=== PATIENT | female | born 1955 | race Caucasian/White ===

== ENCOUNTER 2017-05-02 01:01 | Emergency (ER) | payer OTHER, SELFPAY ==
[2017-05-02 01:03] VITALS: BP 147/80; PULSE 79; RESP 14; TEMP 36.4; O2SAT 96; BMI 29.9
--- NOTE | 2017-05-02 02:15 | RAD_ITS ---
STUDY: X-RAY - LEFT HAND REASON FOR EXAM: Female, 61 years old. left hand pain after smashing 4th digit TECHNIQUE: 3 view(s) of the hand. COMPARISON: None. FINDINGS: Normal radiocarpal articulation. Normal distal radioulnar joint. Normal visualized carpal bones. There is degenerative joint disease of the scaphotrapezium / trapezoid articulation. The remainder of the carpal articulations are normal. There is degenerative arthrosis of the carpometacarpal (CMC) articulation of the thumb. Normal second through fifth carpometacarpal joints. There is deformity of the second metacarpal consistent with old fracture. Normal metacarpophalangeal joint of the thumb. Normal interphalangeal joint of the thumb. Normal proximal and distal phalanges of the thumb. Normal metacarpophalangeal joints of the second through fifth fingers. Normal proximal and distal interphalangeal joints of the second through fifth fingers. Normal phalanges of the second through fifth fingers. There is soft tissue swelling in the proximal part of the fourth finger suggesting edema. RAD/Hand Min 3 Views IMPRESSION: Degenerative joint disease of the hand and wrist, as described above. Electronically Signed: Betsey Ruiz MD at 2:40 EST Tel , Service support ,
--- NOTE | 2017-05-02 02:55 | ED.VISSUMM ---
- ER Visit Summary Date of Service: 05/02/17 Chief Complaint: [] Finger crush injury History of Present Illness: The patient is a 61 F [] complaining of a finger crush injury at work where she was struck by a piece of metal while performing a task. She reports the pain is localized to her distal interphalangeal joint of the left ring finger. She reports she is right-hand dominant. No other complaints at this time. Physical Examination: [] Left ring finger shows contusion at the DIP joint with mild swelling and tenderness palpation. Neurovascularly intact distally. Patient is able to move the finger through the full range of motion. Remainder of the finger and hand exam is unremarkable. Test Results: [] X-rays of the hand are unremarkable. Emergency Department Course and Treatment: [] Patient was offered analgesic pain medication and she declined. X-rays were negative. She was provided an AlumaFoam splint and encouraged to follow-up with the [facility]. Treatment Plan: [] Follow-up with [facility]. Disposition: [] Discharge, stable Impression: [] Left ring finger contusion This note was generated with [employer] dictation software. It may contain incorrect words, spelling, and punctuation that were not noted in review of the chart prior to signing ED Disposition - Plan for ED Patient: Chief Complaint: Upper Extremity Injury Referrals: Dorota Soriano [Primary Care Provider] -
--- NOTE | 2017-05-02 02:58 | ED.DCSUM_ITS ---
- ER Visit Summary Date of Service: 05/02/17 Chief Complaint: [] Finger crush injury History of Present Illness: The patient is a 61 F [] complaining of a finger crush injury at work where she was struck by a piece of metal while performing a task. She reports the pain is localized to her distal interphalangeal joint of the left ring finger. She reports she is right-hand dominant. No other complaints at this time. Physical Examination: [] Left ring finger shows contusion at the DIP joint with mild swelling and tenderness palpation. Neurovascularly intact distally. Patient is able to move the finger through the full range of motion. Remainder of the finger and hand exam is unremarkable. Test Results: [] X-rays of the hand are unremarkable. Emergency Department Course and Treatment: [] Patient was offered analgesic pain medication and she declined. X-rays were negative. She was provided an AlumaFoam splint and encouraged to follow-up with the [facility] [place]. Treatment Plan: [] Follow-up with [facility]. Disposition: [] Discharge, stable Impression: [] Left ring finger contusion This note was generated with [employer] dictation software. It may contain incorrect words, spelling, and punctuation that were not noted in review of the chart prior to signing ED Disposition - Plan for ED Patient: Chief Complaint: Upper Extremity Injury Referrals: Dorota Soriano [Primary Care Provider] -
--- NOTE | 2017-05-02 02:59 | DCINST.ED_ITS ---
ED Disposition - Plan for ED Patient: Disposition: Home or Assisted Living Chief Complaint: Upper Extremity Injury Instructions: ED Crush Injury Finger No Fx Referrals: Dorota Soriano [Primary Care Provider] - [facility] [place], [place] [GROUP OF PHYSICIANS] -
[2017-05-02 03:05] VITALS: RESP 16
== END 2017-05-02 03:06 | disposition home or self-care (01) ==
PROVIDERS: Emergency Provider Emergency Medicine
DX: S60.042A Contusion of left ring finger without damage to nail, initial encounter (principal); I10 Essential (primary) hypertension; M19.90 Unspecified osteoarthritis, unspecified site; Z79.899 Other long term (current) drug therapy; W22.8XXA Striking against or struck by other objects, initial encounter; Y93.89 Activity, other specified; Y92.89 Other specified places as the place of occurrence of the external cause; Y99.0 Civilian activity done for income or pay
CPT/HCPCS: 73130; 99282

== ENCOUNTER 2018-08-08 23:03 | Emergency (ER) | payer OTHER, SELFPAY ==
[2018-08-08 23:04] VITALS: BP 140/87; PULSE 80; RESP 18; TEMP 36.9; O2SAT 96; BMI 30.7
--- NOTE | 2018-08-08 23:28 | RAD_ITS ---
STUDY: X-RAY - LEFT HAND, ATTENTION THIRD FINGER REASON FOR EXAM: Female, 62 years old. Trauma TECHNIQUE: . 3 view(s) of the finger were obtained. COMPARISON: None. FINDINGS: Degenerative changes are present. There is mild soft tissue swelling. No radiopaque foreign body. No acute fracture or dislocation. RAD/Finger(s) Min 2 Views IMPRESSION: No acute fracture. Mild soft tissue swelling. Electronically Signed: Juan José Vu, at 23:41 EDT Tel , Service support ,
--- NOTE | 2018-08-09 00:31 | ED.VISSUMM ---
- ER Visit Summary Date of Service: 08/09/18 Chief Complaint: Left long finger injury History of Present Illness: The patient is a 62 F with a crush injury to the left long finger at work tonight. Patient believes the role weight approximate 50 pounds related on her finger. She is right-hand dominant. Physical Examination: Vital signs unremarkable. Patient sitting upright in bed no acute distress. Left upper extremity examination was mild edema and ecchymosis to the left third finger the DIP joint. She has slight decreased range of motion. Good cap refill and sensation noted. Test Results: Left third finger x-rays reveal no fracture. Emergency Department Course and Treatment: Patient is placed in AlumaFoam splint to help provide some protection. She is to come out of this 3 times a day to work on range of motion. She will be written for work restrictions to protect her hand. Treatment Plan: [] Disposition: Discharge Impression: Crush injury left third finger This note was generated with [employer] dictation software. It may contain incorrect words, spelling, and punctuation that were not noted in review of the chart prior to signing ED Disposition - Plan for ED Patient: Disposition: Home or Assisted Living Instructions: ED Crush Injury Finger No Fx Referrals: [facility] [GROUP OF PHYSICIANS] - 3-5 Days
[2018-08-09 00:42] VITALS: BP 148/96; PULSE 70; RESP 18; O2SAT 98
== END 2018-08-09 00:43 | disposition home or self-care (01) ==
PROVIDERS: Emergency Provider Emergency Medicine
DX: S67.193A Crushing injury of left middle finger, initial encounter (principal); W22.8XXA Striking against or struck by other objects, initial encounter; Y93.89 Activity, other specified; Y92.89 Other specified places as the place of occurrence of the external cause; Y99.0 Civilian activity done for income or pay
CPT/HCPCS: 73140; 99282

== ENCOUNTER 2018-09-20 08:00 | Outpatient (RCR) | payer OTHER, SELFPAY ==
[2018-08-22 07:19] VITALS: BMI 29.0
--- NOTE | 2018-08-26 09:24 | HP.OTEVAL_ITS ---
Patient's Visit Information QUIN BIRCH is a 63 year old F, referred to Occupational Therapy by DOE Bustos, with a diagnosis of left MF crush injury. Date of Evaluation: 08/26/18 Occupational Therapist: MARY ALICE Peguero/Shun, CHT - Subjective Subjective: This 63 year old female was seen for OT eval with dx of left IF. PT states August 08 she got her finger caught in a machine. pt states finger began to swelling and turning black and blue, pt then went to the hospital, she thought she broke her finger at the time, pt states ER took xray and did splint her finger. pt is concerned pain and ROM, numbness of her finger. pt would like to get back to using her hand. - Pain left MF 4 Pain Intensity Range: 1, 4, 6 - ROM MP: right MF 0/85 left 0/80 PIP: right MF 0/100 left 0/90 DIP: right MF 0/47 left 0/25 - Strength Interactive Media Specialist: right 47# left 25# Lateral Pinch: right 12# left 10# Tripod Pinch: right 12# left 6# - Edema PIP: right 5.3 left 5.4 - Sensation Thumb: right 3.22 left 3.22 Index: right 3.22 left 3.22 Middle: right 3.22 left 3.61 Ring: right 3.22 left 3.22 Little: right 3.22 left 3.22 - Goals Goal:: PT will demo an increase in char filter tank tender head strength by 20# to increase independent with basic occupations of daily living to return pt to [facility] by D/C. Pt will demo an increase in lateral and tripod pinch by 2# to increase pts independent with opening baggies, containers at [facility] by D/C. Goal:: Pt will demo the ability to form a composite fist to return to performing BADLs and IADLS at [facility] by d/c. Goal:: Pt will report pain no greater than 1/10 with use of affected hand with BADLs and IADLs by d/c. Goal:: Pt will demo a increase in sensation demo by testing a decrease with semi-Karen monofilaments equal to unaffected sensory nerve by d/c Goal:: Pt will demo lit of placing left MF on different textures to increase use of left hand for ADLs and IADLS by d/c - Rehabilitation General Assessment: PT demo with limited left MF ROM, a decrease in left char filter tank tender head and pinch strength, as well as a decline in sensation. pts scar is hypersensitive at this time limiting pt with ADLs and IADLs. Pt would benefit from skilled OT services 2-3x week for 4 weeks. Today pt was ed. in tendon gluide, desensitization, scar mtg and edema control. pt was given handouts and demo understanding of ex and agree to POC. Rehabilitation Potential: Good - Anticipated Interventions Anticipated Interventions: A/AAROM/PROM, Strengthening, Edema Control, Tri ggerpoint Release, Desensitization, Sensory Retraining, Modalities, Orthoses, Joint Protection/Energy Conservation, Ergonomic Education, Fine Motor Coord/Andrade - Visit Plan Frequency: 2-3x /Week Duration: 4 Weeks TEXT: Thank you for the opportunity to evaluate your patient. For Medicare and Medicare HMO plans, please review the plan of care and approve it. It will need to be FAXED BACK to us at [phone] for Medicare purposes. Please let me know if there are questions or concerns regarding this plan of care. Physician Signature: Date:
--- NOTE | 2018-09-20 08:17 | HP.OTDCSUM ---
HP - OT D/C Summary It has been my pleasure to treat QUIN BIRCH under orders from DOE Bustos, for the diagnosis of left MF crush injury for a total of 8 visit(s). Please see the following information for a summary of their discharge status. 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 A left lateral pinch at 12# a increase from 10#. and a Left tripod pinch at 13# a increase from 6#. pt reports she is lifting parts with her hand and does not need scar covered at this time. Pt sensation improved to 2.83 of all left hand digits demo sensation WNL. - Goals Patient Goals: Regain Mobility, Regain Strength, Decrease Pain, Decrease Swelling/Stiffness, Improve Fine Motor Skills, Use Hand/Wrist/Arm Normally Again, Decrease Tingling/Numbness Goal:: PT will demo an increase in foundry laborer coreroom strength by 20# to increase independent with basic occupations of daily living to return pt to [facility] by D/C. Pt will demo an increase in lateral and tripod pinch by 2# to increase pts independent with opening baggies, containers at [facility] by D/C. Goal:: Pt will demo the ability to form a composite fist to return to performing BADLs and IADLS at [facility] by d/c. Goal:: Pt will report pain no greater than 1/10 with use of affected hand with BADLs and IADLs by d/c. Goal:: Pt will demo a increase in sensation demo by testing a decrease with semi-Karen monofilaments equal to unaffected sensory nerve by d/c Goal:: Pt will demo lit of placing left MF on different textures to increase use of left hand for ADLs and IADLS by d/c - Plan Plan: D/C - D/C Information Discharge Comments: Pt has attended 8/12 therapy sessions- Pt has done well and returned to using her hand ind. pt has met goals in OT and is D/C at this time. If there are questions or concerns regarding this patient's occupational therapy, please fell free to call me at [phone]. Thank you for the referral of this patient. Sincerely, Della Spencer, OTR/L, CHT
== END 2018-09-20 19:00 | disposition home or self-care (01) ==
LOC: OT 08:00
PROVIDERS: Family Provider Family Medicine; PCP Family Medicine; Referring Provider Physician Assistant; Visit Provider Physician Assistant
DX: S67.193D Crushing injury of left middle finger, subsequent encounter (principal)
CPT/HCPCS: 97110; 97140; 97166; 97530

== ENCOUNTER 2019-04-20 10:58 | Emergency (ER) | payer BC, SELFPAY ==
[2018-09-14 08:42] VITALS: BMI 29.0
[2019-04-20 11:01] VITALS: BP 159/107; PULSE 85; RESP 16; TEMP 36.6; O2SAT 99; BMI 30.8
--- NOTE | 2019-04-20 11:21 | ED.DCSUM_ITS ---
- ER Visit Summary Date of Service: 04/20/19 Chief Complaint: Epigastric abdominal discomfort and nausea and vomiting History of Present Illness: The patient is a 63 F past medical history of hypertension. Prior hysterectomy. Patient works third shift. This morning started having nausea and vomiting x3. No hematemesis. No melena. No fever. Positive chills. She has had mild epigastric tommy discomfort. Recently she has not had any abdominal pain. No weight loss. No dysuria. No one else wallace pugh in her home has GI symptoms. Physical Examination: Elderly female no acute distress. Vital signs are stable and afebrile. She does not look septic or toxic. H EENT exam unremarkable. Mildly dry movements. Neck nontender lungs clear to auscultation bilaterally. Heart regular rate and rhythm no murmur. Abdomen soft. Minimal epigastric tenderness to palpation. Nondistended. Normal bowel sounds. No signs of obstruction. No hernia or masses. None of the right upper and right lower quadrants are unremarkable. Extremities moves all 4. No edema. Neurologically she is awake and alert with no focal motor deficits. Test Results: White count 11.7. Normal hemoglobin 14 no bands. Electrolytes unremarkable BUN of 25 creatinine 1.26 consistent with a mild dehydration. Liver enzymes normal. Lipase normal at 63. Emergency Department Course and Treatment: Patient treated with IV fluids and IV Zofran. Likely this appears to be a viral syndrome. Labs to be obtained due to the epigastric abdominal pain. I think it is very unlikely for this to be cardiac but I am checking an EKG. Repeat exam patient is doing well at 12:39 PM. Abdomen is completely benign. Both the right upper and right lower quadrants are unremarkable. There is no distention. The abdomen is soft. She is feeling improved after a liter of fluid and IV Zofran. And they are comfortable being discharged home. We did discuss all test results and follow-up as needed. Treatment Plan: Zofran as needed for nausea. Plenty of fluids and rest. Increase diet as tolerated. Off work the next 2 days. Disposition: Discharge Impression: Acute nausea and vomiting epigastric abdominal pain secondary to viral syndrome This note was generated with [employer] software. It may contain incorrect words, spelling, and punctuation that were not noted in review of the chart prior to signing ED Disposition - Plan for ED Patient: Referrals: Care Physician,No Primary [NON-STAFF] -
[2019-04-20 11:40] LABS: Absolute Lymphocyte Count 1.12 X10^3/uL (0.83-4.51); Absolute Neutrophil Count 10.2 X10^3/uL (2.0-7.7); Basophil# 0.03 X10^3/uL; Basophil% 0.3 % (0-1); Eosinophil# 0.01 X10^3/uL; Eosinophils% 0.1 % (0-5); Hematocrit 42.6 % (37-47); Hemoglobin 14.4 g/dL (12.0-15.0); Lymphocyte # 1.12 X10^3/ul (4.0); Lymphocyte % 9.6 % (19-41); Mean Corp Hgb Conc 33.8 g/dL (32-36); Mean Corpuscular Hgb 31.8 pg (27.0-32.0); Monocyte# 0.25 X10^3/uL; Monocyte% 2.1 % (0-10); NRBC Flagged by Analyzer 0 % (0-5); Neutrophil # 10.19 X10^3/uL (2.7-7.7); Neutrophil % 87.5 % (47-70); Platelet Count 271 K/mm3 (150-450); RBC Distribution Width CV 12.5 % (11.6-14.6); RBC Distribution Width SD 43.4 fl (35.1-43.9); Red Blood Count 4.53 M/mm3 (4.2-5.4); White Blood Count 11.7 K/mm3 (4.4-11.0)
[2019-04-20] MEDS: 0.9% Normal Saline 1,000 ML 1000 ML IV (11:43)
[2019-04-20] MEDS: Ondansetron 4 MG/2 ML Vial IV (11:43)
[2019-04-20 12:01] LABS: AST(SGOT) 17 U/L (15-37); Alanine Aminotransfer ALT/SGPT 41 U/L (13-56); Albumin, Serum 4.1 g/dL (3.2-5.0); Alkaline Phosphatase 77 U/L (45-117); Anion Gap 6 (5-15); BUN 25 mg/dL (7-18); BUN/Creat Ratio 19.8 RATIO (10-20); Bilirubin, Direct 0.15 mg/dL (0.00-0.30); Calcium,Total 9.4 mg/dL (8.5-10.1); Chloride 109 mmol/L (98-107); Creatinine, Serum 1.26 mg/dL (0.55-1.02); EST Glomerular Filtration Rate 45 mL/min (>60); Est Glom Filt Rate - Afr Amer 55 mL/min (>60); Estimated Creatinine Clearance 40.59 ml/min; Globulin 3.8 g/dL (2.2-4.2); Glucose 132 mg/dL (74-106); Lipase 63 U/L (73-393); Potassium 3.9 mmol/L (3.5-5.1); Protein, Total 7.9 g/dL (6.4-8.2); Sodium Level 141 mmol/L (136-145)
--- NOTE | 2019-04-20 12:39 | ED.DEP ---
ED Disposition - Plan for ED Patient: Disposition: Home or Assisted Living Instructions: GASTROENTERITIS, Viral (5y-Adult) Prescriptions: Ondansetron [Zofran Odt] 4 mg PO Q8H PRN PRN #7 tab PRN Reason: Nausea Prescription Printed Referrals: Kike Verduzco MD [STAFF PHYSICIAN] - As Needed Additional Instructions: Fluids and rest. Increase diet as tolerated. Zofran as needed for nausea which you may swallow or dissolve under your tongue. Follow-up with your doctor if not improving or return if worse. Off work tonight and tomorrow as needed.
[2019-04-20 12:48] VITALS: BP 129/87; PULSE 89; RESP 18; O2SAT 99
== END 2019-04-20 12:49 | disposition home or self-care (01) ==
PROVIDERS: Emergency Provider Emergency Medicine; PCP Family Medicine; Referring Provider Family Medicine
DX: R11.2 Nausea with vomiting, unspecified (principal); R10.13 Epigastric pain; B34.9 Viral infection, unspecified; I10 Essential (primary) hypertension; Z79.82 Long term (current) use of aspirin; Z79.899 Other long term (current) drug therapy; Z90.710 Acquired absence of both cervix and uterus
CPT/HCPCS: 80048; 80076; 83690; 85025; 96361; 96374; 99283; J7030; A4216; J2405

== ENCOUNTER 2022-01-20 10:58 | Emergency (ER) | payer OTHER, MEDICARE, SELFPAY ==
[2022-01-20 11:00] VITALS: BP 148/83; PULSE 88; RESP 16; TEMP 35.9; O2SAT 97; BMI 29.9
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
--- NOTE | 2022-01-20 11:35 | RAD_ITS ---
STUDY: X-RAY - LEFT HAND REASON FOR EXAM: Female, 66 years old. Pain following injury. TECHNIQUE: 3 view(s) of the hand. COMPARISON: Comparison is made with prior study 10/30/2017. FINDINGS: Normal radiocarpal articulation. Normal distal radioulnar joint. Normal visualized carpal bones. Normal carpal articulations Normal carpometacarpal articulation of the thumb. Normal second through fifth carpometacarpal joints. Normal metacarpi. There is degenerative arthrosis of the metacarpophalangeal (MCP) joints. Normal interphalangeal joint of the thumb. Normal proximal and distal phalanges of the thumb. Normal metacarpophalangeal joints of the second through fifth fingers. Normal proximal and distal interphalangeal joints of the second through fifth fingers. Normal phalanges of the second through fifth fingers. Soft tissue swelling. RAD/Hand Min 3 Views IMPRESSION: Soft tissue swelling. Electronically Signed: Alberto Lopez MD at 12:22 EDT ,
[2022-01-20 11:36] LABS: Absolute Lymphocyte Count 2.71 X10^3/uL (0.83-4.51); Absolute Neutrophil Count 5.5 X10^3/uL (2.0-7.7); Basophil# 0.05 X10^3/uL; Basophil% 0.5 % (0-1); Eosinophil# 0.16 X10^3/uL; Eosinophils% 1.7 % (0-5); Hematocrit 42.2 % (37-47); Hemoglobin 13.9 g/dL (12.0-15.0); Lymphocyte # 2.71 X10^3/ul (0.83-4.51); Lymphocyte % 29.3 % (19-41); Mean Corp Hgb Conc 32.9 g/dL (32-36); Mean Corpuscular Hgb 30.7 pg (27.0-32.0); Mean Corpuscular Volume 93.2 fL (81-99); Mean Platelet Vol. 11.8 fl (6.2-12.0); Monocyte# 0.77 X10^3/uL; Monocyte% 8.3 % (0-10); NRBC Flagged by Analyzer 0 % (0-5); Neutrophil # 5.54 X10^3/uL (2.7-7.7); Neutrophil % 59.9 % (47-70); Platelet Count 258 K/mm3 (150-450); RBC Distribution Width CV 13.2 % (11.6-14.6); RBC Distribution Width SD 45.5 fl (35.1-43.9); Red Blood Count 4.53 M/mm3 (4.2-5.4); White Blood Count 9.3 K/mm3 (4.4-11.0)
[2022-01-20 11:52] LABS: ALB/GLOB Ratio 1.1 RATIO (0.9-2.4); AST(SGOT) 18 U/L (15-37); Alanine Aminotransfer ALT/SGPT 40 U/L (13-56); Albumin, Serum 3.9 g/dL (3.2-5.0); Alkaline Phosphatase 82 U/L (45-117); Anion Gap 8 (5-15); BUN 32 mg/dL (7-18); BUN/Creat Ratio 23.9 RATIO (10-20); Calcium,Total 9.2 mg/dL (8.5-10.1); Chloride 107 mmol/L (98-107); Creatinine, Serum 1.34 mg/dL (0.55-1.02); EST Glomerular Filtration Rate 42 mL/min (>60); Est Glom Filt Rate - Afr Amer 51 mL/min (>60); Estimated Creatinine Clearance 36.66 ml/min; Globulin 3.7 g/dL (2.2-4.2); Glucose 109 mg/dL (74-106); Potassium 3.9 mmol/L (3.5-5.1); Protein, Total 7.6 g/dL (6.4-8.2); Sodium Level 138 mmol/L (136-145)
[2022-01-20 13:10] VITALS: BP 143/93; PULSE 77
== END 2022-01-20 13:10 | disposition home or self-care (01) ==
PROVIDERS: Emergency Provider Emergency Medicine; PCP Family Medicine; Visit Provider Emergency Medicine
DX: S20.20XA Contusion of thorax, unspecified, initial encounter (principal); S60.222A Contusion of left hand, initial encounter; Z87.891 Personal history of nicotine dependence; V49.9XXA Car occupant (driver) (passenger) injured in unspecified traffic accident, initial encounter
CPT/HCPCS: 70450; 71260; 72125; 73130; 80053; 85025; 99285; Q9967; A4216